=== PATIENT | male | born 1995 | race Caucasian/White ===

== ENCOUNTER 2017-06-12 22:26 | Emergency (ER) | payer OTHER ==
[~2017-06-12] VITALS: Ht 182.9 cm; Wt 84.0 kg
[2017-06-12 22:28] VITALS: TEMP 36.7; Ht 182.9 cm; Wt 84.0 kg
--- NOTE | 2017-06-12 22:53 | EMERGENCY ROOM VISIT NOTE ---
History First contact with patient: 22:30 Chief Complaint: BITE Stated Complaint: TICK ON BACK History of Present Illness The patient is a 21 year old male who presents to the Emergency Room with complaints of a deer tick bite to his back. The patient reports that he is certain that the tick attached itself tonight. The patient did remove it himself, and took pictures of what the tick looked like. He denies any pain. Tetanus immunization is up-to-date. Review of Systems 10 system review was performed and was negative except for pertinent positives and negatives as indicated in history of present illness Past Medical/Surgical History Medical Problems: (1) Pneumonia Surgical Problems: (1) History of wisdom tooth extraction (2) Inclusion cyst of skin of shoulder Family History FH: diabetes mellitus FH: heart disease FH: hypertension Social History Smoking Status: Never Smoker Alcohol Use: occasionally Marital Status: single Housing Status: lives alone Occupation Status: employed Current/Historical Medications No Active Prescriptions or Reported Meds Physical Exam Vital Signs Date Time Temp Pulse Resp B/P (MAP) Pulse Ox O2 Delivery O2 Flow Rate FiO2 06/12/17 22:28 36.7 50 16 136/87 100 Room Air Physical Exam CONSTITUTIONAL: Healthy and well nourished. HEENT: Normocephalic, atraumatic. Pupils equal, round and reactive. NECK: Full active range of motion without discomfort. INTEGUMENTARY: Examination shows a deep abrasion where the tick was removed by the patient. The tick was removed in its entirety. NEUROLOGIC: No focal neurologic deficits noted. Medical Decision & Procedures ED Course Patient history and physical exam were performed. Nurse's notes were reviewed. Vital signs were reviewed and normal. The patient did show me a picture of the tick, confirming that it is indeed a deer tick. The patient was encouraged to keep the wound clean and covered with an antibiotic ointment and dressing until it heals. Watch for any signs of developing infection. Although the tick was removed quickly, the patient was instructed to watch for any rash consistent with appearance of erythema migrans. The patient was happy with plan of care, and voiced understanding of all discharge instructions. Medical Decision Medication Reconcilliation Current Medication List: was personally reviewed by me Blood Pressure Screening Patient's blood pressure: Normal blood pressure Impression Primary Impression: Tick bite of back Departure Information Dispostion Home / Self-Care Prescriptions No Active Prescriptions or Reported Meds Forms HOME CARE DOCUMENTATION FORM, IMPORTANT VISIT INFORMATION Patient Instructions My [facility], ED Bite Tick No Abx Tx Additional Instructions Keep wound clean and covered with an antibiotic ointment and bandage until it heals. Watch for any developing redness around the wound over the next several days that may look like an infection. Watch for any developing bull's-eye rash over the next several weeks. Your risk of developing Lyme disease is negated if the tick is removed within the first 36-48 hours. Problem Qualifiers Primary Impression: Tick bite of back Encounter type: initial encounter Qualified Codes: S30.860A - Insect bite ( nonvenomous) of lower back and pelvis, initial encounter; W57.XXXA - Bitten or stung by nonvenomous insect and other nonvenomous arthropods, initial encounter
[2017-06-12 23:10] VITALS: BP 127/84; PULSE 61; O2SAT 100
== END 2017-06-12 23:10 | disposition home or self-care (01) ==
LOC: C.EDB 22:28 → C.EDA 23:10
DX: S30.860A Insect bite (nonvenomous) of lower back and pelvis, initial encounter (principal); W57.XXXA Bitten or stung by nonvenomous insect and other nonvenomous arthropods, initial encounter; Z83.3 Family history of diabetes mellitus; Z82.49 Family history of ischemic heart disease and other diseases of the circulatory system